=== PATIENT | female | born 1980 | race Caucasian/White ===

== ENCOUNTER 2019-02-21 09:55 | Emergency (ER) | payer MEDICAID ==
[~2019-02-21] VITALS: Ht 157.5 cm; Wt 72.7 kg
[2019-02-21 10:02] VITALS: BP 118/57; TEMP 97.9
[2019-02-21] MEDS ORDERED: ROBAXIN 50500 MG/TAB PO (10:43)
[2019-02-21] MEDS ORDERED: MEDROL 4MG DOSPA4 MG PO (10:43)
[2019-02-21 10:52] LABS: COLLECTION METHOD CLEAN CATCH
[2019-02-21 10:57] LABS: MUCOUS Present /lpf; PH 5 (5-8); SQUAMOUS EPITHELIAL 0-2 /hpf; URINE APPEARANCE Clear; URINE BACTERIA None Seen /hpf; URINE BILIRUBIN Negative (NEGATIVE); URINE BLOOD Negative (NEGATIVE); URINE COLOR Yellow; URINE GLUCOSE Negative (NEGATIVE); URINE KETONE Negative (NEGATIVE); URINE LEUKOCYTE ESTERASE Negative (NEGATIVE); URINE NITRATE Negative (NEGATIVE); URINE PROTEIN(semi-quant) Negative (NEGATIVE); URINE RBC 0-2 /hpf
[2019-02-21 11:25] VITALS: PULSE 78
== END 2019-02-21 11:25 | disposition home or self-care (01) ==
LOC: COL.ER 09:55
PROVIDERS: Physician Assistant
DX: M54.42 Lumbago with sciatica, left side (principal); Z90.89 Acquired absence of other organs; Z98.890 Other specified postprocedural states; Z88.5 Allergy status to narcotic agent; Z98.84 Bariatric surgery status

== ENCOUNTER 2019-03-27 12:23 | Emergency (ER) | payer MEDICAID ==
[~2019-03-27] VITALS: Ht 160 cm; Wt 72.7 kg
[~2019-03-27 12:23] MED LIST: MEDROL 4MG DOSPA4 MG PO; ROBAXIN 50500 MG/TAB PO
[2019-03-27 12:43] VITALS: BP 114/66; TEMP 98
[2019-03-27 15:04] VITALS: PULSE 76
== END 2019-03-27 15:05 | disposition home or self-care (01) ==
LOC: COL.ER 12:23
DX: M54.42 Lumbago with sciatica, left side (principal); Z98.84 Bariatric surgery status; Z98.51 Tubal ligation status
CPT/HCPCS: J1885

== ENCOUNTER → 2019-04-20 | Outpatient (CLI) | payer MEDICAID | LOC: COL.RAD 09:31 | DX: R74.8 Abnormal levels of other serum enzymes (principal) | CPT/HCPCS: A9503 ==

== ENCOUNTER → 2019-05-12 | Outpatient (CLI) | payer MEDICAID | LOC: COL.RAD 11:31 | DX: M25.559 Pain in unspecified hip (principal); M54.5 Low back pain ==

== ENCOUNTER → 2019-06-13 | Outpatient (CLI) | payer MEDICAID | LOC: MHCPAIN 09:46 | DX: M54.5 Low back pain (principal); M99.04 Segmental and somatic dysfunction of sacral region; G89.29 Other chronic pain | CPT/HCPCS: G0463 ==

== ENCOUNTER → 2019-08-07 | Outpatient (CLI) | payer MEDICAID | LOC: MC.RAD 07-10 14:45 | DX: Z12.31 Encounter for screening mammogram for malignant neoplasm of breast (principal); Z98.82 Breast implant status ==

== ENCOUNTER 2019-10-30 18:47 | Emergency (ER) | payer MEDICAID ==
[~2019-10-30] VITALS: Ht 160 cm; Wt 75.0 kg
[2019-10-30 18:57] VITALS: TEMP 98.2
[2019-10-30 19:34] LABS: COLLECTION METHOD CLEAN CATCH
[2019-10-30 19:40] LABS: BASO % 0.6 % (0.0-2.0); EOS # 0.1 (0.0-0.7); EOS % 1.5 % (0-4.0); GRAN # 3.9 (1.4-6.5); GRAN % 60.1 % (42.2-75.2); HEMOGLOBIN 12.9 g/dl (12.5-16.0); LYMPH # 2.1 (1.2-3.4); LYMPH % 31.5 % (20.0-51.0); MEAN CELL VOLUME 93 fl (80.0-100.0); MEAN CORPUSCULAR HEMOGLOBIN 30 pg (27.0-31.0); MEAN CORPUSCULAR HGB CONC 32 g/dl (33.0-37.0); MEAN PLATELET VOLUME 11.9 fl (7.4-10.4); MONO # 0.4 (0.1-0.6); PLATELET COUNT 301 K/mm3 (130-400); RED BLOOD COUNT 4.29 M/mm3 (4.10-5.30); REDCELL DISTRIBUTION WIDTH-CV 13.7 % (11.5-14.5)
[2019-10-30 19:50] LABS: ALBUMIN 4.1 gm/dL (3.5-5.0); BILIRUBIN,TOTAL 0.5 mg/dL (0.0-1.0); C-REACTIVE PROTEIN 0.5 mg/dL (0.0-0.9); CREATININE, serum 0.6 (0.52-1.25); POTASSIUM 4.1 mmol/L (3.4-5.0); TOTAL PROTEIN 7.7 gm/dL (6.4-8.2)
[2019-10-30 19:54] LABS: MUCOUS Present /lpf; PH 6 (5-8); URINE APPEARANCE Clear; URINE BACTERIA Rare /hpf; URINE BILIRUBIN Negative (NEGATIVE); URINE BLOOD Negative (NEGATIVE); URINE COLOR Yellow; URINE GLUCOSE Negative (NEGATIVE); URINE KETONE Negative (NEGATIVE); URINE LEUKOCYTE ESTERASE Negative (NEGATIVE); URINE NITRATE Negative (NEGATIVE); URINE PROTEIN(semi-quant) Negative (NEGATIVE); URINE RBC 0-2 /hpf
[2019-10-30] MEDS ORDERED: FLEXERIL 1010 MG/TAB PO (20:19)
[2019-10-30 20:37] VITALS: BP 100/69; PULSE 76
== END 2019-10-30 20:37 | disposition home or self-care (01) ==
LOC: COL.ER 18:47
PROVIDERS: Emergency Medicine
DX: M54.5 Low back pain (principal); R10.9 Unspecified abdominal pain; R11.0 Nausea; R63.0 Anorexia; Z98.84 Bariatric surgery status
CPT/HCPCS: J2405; J3010; J7030

== ENCOUNTER 2020-04-21 13:04 | Emergency (ER) | payer MEDICAID ==
[~2020-04-21] VITALS: Ht 160 cm; Wt 72.7 kg
[~2020-04-21 13:04] MED LIST changes: +FLEXERIL 1010 MG/TAB PO; +ULTRAM 50MG TAB50 MG PO
[2020-04-21 13:28] VITALS: TEMP 98.4
[2020-04-21] MEDS ORDERED: PREDNISONE10 MG PO (14:08)
[2020-04-21 14:36] VITALS: BP 125/73; PULSE 68
== END 2020-04-21 14:38 | disposition home or self-care (01) ==
LOC: COL.ER 13:04
DX: M54.32 Sciatica, left side (principal); Z88.8 Allergy status to other drugs, medicaments and biological substances
CPT/HCPCS: J1885; J2360; J7512

== ENCOUNTER → 2021-05-09 | Outpatient (CLI) | payer OTHER ==
[~2021-05-09] MED LIST changes: +PREDNISONE10 MG PO
== END ==
LOC: COL.RAD 08:47
DX: Z02.71 Encounter for disability determination (principal); M51.36 Other intervertebral disc degeneration, lumbar region

== ENCOUNTER 2023-10-21 11:01 | Emergency (ER) | payer MEDICAID ==
[~2023-10-21] VITALS: Ht 160 cm; Wt 71.8 kg
[~2023-10-21 11:01] MED LIST changes: +AMOXICILLIN 8751 TAB PO; +CLEOCIN HC150 MG/CAP PO; +ZOFRAN ODT4 MG PO
[2023-10-21 11:05] VITALS: TEMP 98.3
[2023-10-21 11:34] LABS: COLLECTION METHOD CLEAN CATCH
[2023-10-21 11:43] LABS: URINE APPEARANCE CLEAR (CLEAR/HAZY); URINE BLOOD NEGATIVE (NEGATIVE); URINE COLOR YELLOW (YELLOW); URINE GLUCOSE NEGATIVE (NEGATIVE); URINE KETONE TRACE (NEGATIVE); URINE NITRATE NEGATIVE (NEGATIVE); URINE PROTEIN(semi-quant) TRACE (NEGATIVE)
[2023-10-21 12:29] VITALS: BP 120/68; PULSE 88
== END 2023-10-21 12:29 | disposition home or self-care (01) ==
LOC: COL.ER 11:01
PROVIDERS: Personal Emergency Response Attendant
DX: B34.9 Viral infection, unspecified (principal); R50.9 Fever, unspecified; R52 Pain, unspecified